=== PATIENT | male | born 1980 ===

== ENCOUNTER 2019-12-08 15:49 | Outpatient (REF) | payer BC, SELFPAY ==
[2019-12-12 23:54] LABS: SARS-CoV-2 RNA Undetected (Undetected); SARS-CoV-2 Specimen Source Nasopharynx
== END 2019-12-08 16:09 ==
LOC: NCHCN 15:49
PROVIDERS: PCP Nurse Practitioner Community Health; Visit Provider Nurse Practitioner Community Health
DX: Z11.59 Encounter for screening for other viral diseases (principal)
CPT/HCPCS: U0003

== ENCOUNTER 2020-03-08 21:51 | Outpatient (REF) | payer BC, SELFPAY ==
[2020-03-12 10:11] LABS: COVID-19 RT-PCR Result NEGATIVE (Negative)
== END 2020-03-08 22:11 ==
LOC: NCHCN 21:51
PROVIDERS: PCP Nurse Practitioner Community Health; Visit Provider Nurse Practitioner Family
DX: Z20.828 Contact with and (suspected) exposure to other viral communicable diseases (principal)
CPT/HCPCS: U0003